=== PATIENT | male | born 1985 | race Caucasian/White ===

== ENCOUNTER 2025-01-04 18:34 | Emergency (ER) | payer BC ==
[~2025-01-04] VITALS: Ht 190.5 cm; Wt 86.6 kg
[2025-01-04 18:50] VITALS: BP 177/130; PULSE 75; RESP 15; O2SAT 96
[2025-01-04] MEDS: TETanus/Pertussis (Acell)/Diphther VAC/PF (Tdap-Adult) 0.5ml syringe IMVAC ONE (19:47)
[2025-01-04] MEDS: LIDOcaine 1% W/epiNEPHrine 1:100,000 20ml vial IJ ONE (20:14)
[2025-01-04] MEDS ORDERED: SULF1TAB49 PO (22:04)
[2025-01-04] MEDS ORDERED: CIPR750T14 PO (22:04)
== END 2025-01-04 22:23 | disposition home or self-care (01) ==
LOC: ER 18:36
DX: S91.331A Puncture wound without foreign body, right foot, initial encounter (principal); Z88.0 Allergy status to penicillin; W45.0XXA Nail entering through skin, initial encounter; Y93.89 Activity, other specified; Y92.89 Other specified places as the place of occurrence of the external cause; Y99.8 Other external cause status
CPT/HCPCS: 73630; 90471; 90715; 99283; A6407; J7030; A6449